=== PATIENT | female | born 1985 | race Caucasian/White ===

== ENCOUNTER 2018-10-26 03:07 | Inpatient (IN) ==
[2018-10-26] MEDS ORDERED: OXYTOCIN 30 UNITS/500 ML BAG IV PRN ×2 (03:26→11:23)
--- NOTE | 2018-10-26 03:34 | History & Physical Report ---
Date of Service October 26, 2018 Assessment & Plan (1) Uterine contractions at greater than 20 weeks of gestation: 33 yo at 40.5 wks with contractions, in active labor, VSS Afebrile GBS negative Desires epidural Plan to admit, monitor, IVF, Epidural for pain, anticipate History of Present Illness Chief Complaint: Contractions Primary Care Provider: NO PCP Patient is a 33 yo at 40.5 wks who has been feeling ctxs since 11 pm Got closer and regular She desires epidural for pain No LOF/VB +FM Her has been uncomplicated GBS negative Patient History Social History Preferred Language: Yi Communication Ability: Effective Languages And Literature Instructor Required: No Beliefs That Will Affect Care: None marital status: Current Living Situation: Family Current Living Situation Comment: Lives with and 2 children Feels Safe at Home: Yes Smoking Status: Never smoker Second Hand Exposure: No ; Hx Alcohol Use: No Hx Substance Use: No OB History 2014, 39 wks, 2016, 36 wks, [employer] History No h/o STD's Review of Systems All systems reviewed & are unremarkable except as noted in HPI & below Physical Exam Gastrointestinal (Abdomen): normal bowel sounds, soft, nontender, no hepatosplenomegaly And: soft, NT, gravid Musculoskeletal: no cyanosis or clubbing, extremities motor strength 5/5 Ext: NT, no edema Genitourinary: Manual OB Exam: + cervical dilation 6 cm, + cervical effacement 60% and + station (-3, vertex) -2 140's, had a variable decel in the beginning, none since then Results & Data Vital Signs (Past 12 Hours) Vital Signs Temp Pulse Resp BP 10/26/18 03:21 75 146/86 H 10/26/18 03:20 36.7 C 20
[2018-10-26] MEDS ORDERED: PATIENT'S ALLERGY INFO NEEDS ENTERED SCH (03:45)
[2018-10-26] MEDS: LACTATED RINGER'S 1,000 ML IV PRN ×3 (03:46→09:41)
[2018-10-26 03:49] LABS: Hematocrit (blood only) 32.9 % (37-47); Hemoglobin 10.8 g/dL (12.0-16.0); Mean Corpuscular Hemoglobin 27.3 pg (25-34); Mean Corpuscular Volume 83.3 fL (80-100); Mean Platelet Volume 9.7 fL (7.4-10.4); Platelet Count 226 K/uL (130-400); RDW Coefficient of Variation 17.3 % (11.5-14.5); RDW Standard Deviation 53.2 fL (36.4-46.3); Red Blood Count 3.95 M/uL (4.2-5.4); White Blood Count 12.16 K/uL (4.8-10.8)
[2018-10-26] MEDS ORDERED: ePHEDrine sulfate 50 MG/ML AMP ONE (03:49)
[2018-10-26] MEDS ORDERED: BUPIVACAINE 0.25% 30 ML VIAL ONE (03:49)
[2018-10-26] MEDS ORDERED: fentaNYL 2MCG/ML ROPIV 1.25MG/ML 100 ML BAG EPI ONE (03:50)
[2018-10-26] MEDS ORDERED: fentaNYL citrate 100 MCG/2 ML VIAL ONE (03:50)
[2018-10-26 03:51] LABS: Mean Corpuscular Hgb Conc 32.8 g/dL (32-36)
--- NOTE | 2018-10-26 04:18 | Anesthesiology Consultation ---
Date of Service October 26, 2018 Assessment & Plan Chart Review Chart Review: Acceptable Risk for Surgery, Patient NOT seen in Pre Admission Testing and Acceptable Risk for Labor Epidural Consults Requested none ASA ASA2 Proposed Anesthesia Anesthesia Type: General and Labor Epidural Risk / Benefits Reviewed With: PT / POA / Parent / Guardian, Accepts Plan and Informed Consent Obtained History Height/Weight Height: 5 ft 6 in Weight: 87.09 kg Allergies Allergy/AdvReac Type Severity Reaction Status Date / Time No Known Allergies Allergy Unverified 10/26/18 03:45 Medications Active Medications Generic Name Dose Route Start Last Admin Trade Name Freq PRN Reason Stop Dose Admin Lactated Ringer's 1,000 mls @ 150 mls/hr 10/26/18 03:26 10/26/18 03:46 Lr IV 10/28/18 03:25 999 mls/hr .[id number] PRN Administration L&D Protocol Protocol NPO Date Last Intake of Fluids: 10/26/18 Time Last Intake of Fluids: 02:00 Date Last Intake of Solids: 10/25/18 Time Last Intake of Solids: 21:00 Past Medical History Medical History Anemia GERD (gastroesophageal reflux disease) (spontaneous vaginal delivery) Uterine fibroid [place] teeth extracted Exercise / Class Metabolic Activity II 4-5 Yardwork/Stairs/Walk up hill Past Surgical History Surgical History History of appendectomy Past Anesthesia History No Hx of Anesthesia Complications and No Family Hx of Anesthesia Complications History of PONV No Hx of PONV and No Hx of Motion Sickness Social History Smoking Status: Never smoker Hx Alcohol Use: No Hx Substance Use: No substance use type: does not use Physical Exam Vital Signs Last Vital Signs Temp 36.7 C 10/26/18 03:35 Pulse 77 10/26/18 04:11 Resp 18 10/26/18 03:35 BP 146/86 H 10/26/18 03:35 Pulse Ox 100 10/26/18 04:11 Constitutional + obese ENMT Mouth: no dentition abnormality Thyromental Distance: > or= 3.5 Finger Breadths Mallampati Class: II Neck normal visual inspection and trachea midline; neck extension not limited Respiratory normal respiratory effort Auscultation: lungs clear to auscultation bilaterally Cardiovascular Rate/Rhythm: regular rate and regular rhythm Heart Sounds: no murmur Musculoskeletal Spine: lumbar spine normal to inspection; normal cervical ROM Neurologic moves all extremities Motor/Sensory: no sensory deficit Psychiatric Orientation: alert and oriented x 3 Testing Laboratory Results 10/26/18 03:37
[2018-10-26] MEDS ORDERED: ONDANSETRON INJ 2 MG/ML 2 ML VIAL IV PRN (04:43)
[2018-10-26] MEDS ORDERED: DiphenhydrAMINE HCL 50 MG/ML VIAL IV PRN (04:43)
[2018-10-26] MEDS ORDERED: fentaNYL 2MCG/ML ROPIV 1.25MG/ML 100 ML BAG EPI PRN (04:43)
[2018-10-26] MEDS ORDERED: NALOXONE HCL 0.4 MG/1 ML VIAL/CARP IV PRN (04:43)
[2018-10-26] MEDS ORDERED: PROMETHAZINE HCL 25 MG in SODIUM CHLORIDE 0.9% 50 ML IV PRN (04:43)
[2018-10-26] MEDS ORDERED: ePHEDrine sulfate 50 MG/ML AMP IV PRN (04:43)
[2018-10-26] MEDS ORDERED: NALBUPHINE HCL INJ 10 MG/ML AMP IV PRN (04:43)
[2018-10-26] MEDS ORDERED: NALOXONE HCL 1 MG in SODIUM CHLORIDE 0.9% 1000ML 1,000 ML IV PRN (04:43)
--- NOTE | 2018-10-26 07:22 | Obstetrical Progress Note ---
Date of Service October 26, 2018 Subjective Patient is comfortable, received epidural FHR had deceleration with recovery and then good variability after VE: 8/ 80%/ -1, bulging bag, AROM'ed, light meconium FM's felt Continue to monitor Anticipate Results & Data Vital Signs (Past 12 Hours) Vital Signs Temp Pulse Resp BP Pulse Ox 10/26/18 07:16 81 100 10/26/18 07:11 94 H 100 10/26/18 07:09 88 120/61 10/26/18 07:06 87 100 10/26/18 07:01 84 100 10/26/18 06:56 77 126/65 100 10/26/18 06:51 78 100 10/26/18 06:46 78 100 10/26/18 06:41 76 100 10/26/18 06:40 68 116/56 L 10/26/18 06:36 75 100 10/26/18 06:31 72 100 10/26/18 06:30 18 10/26/18 06:27 83 118/78 10/26/18 06:26 85 100 10/26/18 06:25 73 91 10/26/18 06:21 70 99 10/26/18 06:16 73 99 10/26/18 06:11 72 99 10/26/18 06:10 70 112/59 L 10/26/18 06:06 70 99 10/26/18 06:01 71 99 10/26/18 06:00 20 10/26/18 05:56 73 99 10/26/18 05:55 71 110/53 L 10/26/18 05:51 71 100 10/26/18 05:46 72 99 10/26/18 05:41 83 100 10/26/18 05:39 83 125/67 10/26/18 05:36 70 100 10/26/18 05:31 68 100 10/26/18 05:30 36.7 C 20 10/26/18 05:26 68 100 10/26/18 05:25 73 123/64 10/26/18 05:21 68 100 10/26/18 05:16 82 100 10/26/18 05:15 18 10/26/18 05:11 76 122/70 100 10/26/18 05:06 81 100 10/26/18 05:01 81 100 10/26/18 05:00 18 10/26/18 04:56 78 98 10/26/18 04:54 83 138/73 10/26/18 04:51 87 99 10/26/18 04:50 18 10/26/18 04:49 84 135/70 10/26/18 04:46 85 99 10/26/18 04:45 18 10/26/18 04:44 86 132/70 10/26/18 04:42 77 125/58 L 10/26/18 04:41 85 99 10/26/18 04:40 77 20 125/62 10/26/18 04:38 84 133/71 10/26/18 04:36 86 129/71 98 10/26/18 04:35 20 10/26/18 04:34 85 135/82 10/26/18 04:32 81 136/80 10/26/18 04:31 84 99 10/26/18 04:30 86 146/89 H 10/26/18 04:26 85 100 10/26/18 04:21 81 100 10/26/18 04:16 81 99 10/26/18 04:13 75 150/82 H 10/26/18 04:11 77 100 10/26/18 04:02 73 100 10/26/18 03:57 83 98 10/26/18 03:35 36.7 C 75 18 146/86 H 10/26/18 03:21 75 146/86 H 10/26/18 03:20 36.7 C 20
[2018-10-26] MEDS ORDERED: METHYLERGONOVINE MALEATE 0.2 MG/ML AMP ONE (11:17)
[2018-10-26] MEDS ORDERED: HYDROCORTISONE ACETATE 25 MG SUPP PR PRN (11:23)
[2018-10-26] MEDS ORDERED: ACETAMINOPHEN 325 MG TAB PO PRN (11:23)
[2018-10-26] MEDS ORDERED: SUPERCREAM 0.870% 15 GM JAR EXT PRN (11:23)
[2018-10-26] MEDS ORDERED: BENZOCAINE 20% AER SPR 82.5 GM CAN EXT PRN (11:23)
[2018-10-26] MEDS ORDERED: METHYLERGONOVINE MALEATE 0.2 MG/ML AMP IM ONE (11:23)
[2018-10-26] MEDS ORDERED: BISACODYL 10 MG SUPP PR PRN (11:23)
[2018-10-26] MEDS ORDERED: miSOPROStol 200 MCG TAB PR ONE (11:23)
--- NOTE | 2018-10-26 14:22 | Anesthesia Procedure Note ---
Date of Service October 26, 2018 Anesthesia Post Epidural Note Vital Signs Vital Signs: Temp Pulse Resp BP Pulse Ox 37.2 C 96 H 20 126/62 100 10/26/18 10:59 10/26/18 13:41 10/26/18 11:00 10/26/18 13:41 10/26/18 11:11 Pain Intensity Abdomen: Pain Intensity: 3 Notes Mental Status: alert / awake / arousable Patient Amnestic to Procedure: Yes Nausea / Vomiting: adequately controlled Pain: adequately controlled Airway Patency, RR, SpO2: stable & adequate BP & HR: stable & adequate Hydration State: stable & adequate Neuraxial Anesthesia: was administered and sensory block resolved Anesthetic Complications: no major complications apparent and Pt Satisfied with anesthetic care Epidural: Removed without complications and With tip intact
[2018-10-26] MEDS: IBUPROFEN 600 MG TAB PO PRN (21:14)
[2018-10-26] MEDS: DOCUSATE SODIUM 100 MG CAP PO SCH (21:14)
--- NOTE | 2018-10-26 22:21 | Delivery Summary ---
DATE OF OPERATION: 10/26/2018 The patient delivered a live infant male in occiput posterior presentation. There was meconium prior to delivery. Infant was delivered, placed on mother's abdomen. Cord was clamped and cut after 1 minute. Apgars in pediatric record. Inspection of the perineum showed a 3rd degree laceration. The rest of the vagina and perineum exam is unremarkable. Estimated blood loss is 500 mL. and mother are doing well. All instruments were removed from the vagina including retractors, sutures and needles. The 3rd degree laceration was repaired with 2-0 Vicryl. Baby and mother are doing well in recovery. I attest to the content of the Intraoperative Record and any orders documented therein. Any exceptions are noted below. MTDD
[2018-10-27] MEDS: IBUPROFEN 600 MG TAB PO PRN (03:27)
[2018-10-27 06:28] LABS: Hematocrit (blood only) 31.2 % (37-47); Hemoglobin 10.1 g/dL (12.0-16.0); Mean Corpuscular Hemoglobin 26.9 pg (25-34); Mean Corpuscular Hgb Conc 32.4 g/dL (32-36); Mean Platelet Volume 9.4 fL (7.4-10.4); Platelet Count 194 K/uL (130-400); RDW Coefficient of Variation 17.7 % (11.5-14.5); RDW Standard Deviation 53.5 fL (36.4-46.3); Red Blood Count 3.76 M/uL (4.2-5.4); White Blood Count 11.72 K/uL (4.8-10.8)
[2018-10-27] MEDS ORDERED: PRENATAL VITAMIN 1 TAB PO SCH (08:00)
[2018-10-27] MEDS: DOCUSATE SODIUM 100 MG CAP PO SCH (08:58)
[2018-10-27] MEDS ORDERED: DIPHTHERIA/TETANUS/PERTUSSIS 0.5 ML SYR/VIAL IM ONE (09:00)
--- NOTE | 2018-10-27 10:26 | Obstetrical Progress Note ---
Date of Service October 27, 2018 Assessment & Plan (1) normal course: Pt doing well No complaints wishes to go home Results & Data Vital Signs (Past 12 Hours) Vital Signs Temp Pulse Resp BP Pulse Ox 10/27/18 03:15 36.4 C L 72 16 120/78 98 10/26/18 23:00 36.9 C 82 18 121/78 98
[2018-10-27] MEDS ORDERED: BISACODYL 5 MG TABEC PO SCH (20:00)
== END 2018-10-27 14:15 | disposition home or self-care (01) | DRG 807 ==
LOC: OPB 03:07 → 4S1 03:14 → 4S2 17:50